=== PATIENT | male | born 1990 | race Caucasian/White ===

== ENCOUNTER 2022-01-29 20:52 | Emergency (ER) | payer BC ==
[2022-01-29 20:57] VITALS: TEMP 97.5
[2022-01-29] MEDS ORDERED: IPRATROPIUM-ALBUTEROL 3 ML NEB INHALATION STA (21:24)
[2022-01-29 22:06] VITALS: BP 132/79; PULSE 74; RESP 18
--- NOTE | 2022-01-29 22:10 | ED ---
URI HPI - General Chief Complaint: Upper Respiratory Infection Stated Complaint: Difficulty Breathing, Throat Swelling Time Seen by Provider: 01/29/22 21:10 Source: patient, family, RN notes reviewed Mode of arrival: ambulatory Limitations: no limitations - History of Present Illness Initial Comments: This is a 32-year-old male who presents to the emergency department with upper respiratory symptoms. States that 2 weeks ago he was in [place], and that is when he began to develop symptoms. He started out with coughing, nasal congestion, and sinus pressure. He went to urgent care 3 days ago and was given a prescription for Augmentin. Since starting the Augmentin, he has had improvement in sinus pressure and congestion, however he has developed a sore throat, and feels like it is becoming harder to breathe because of his throat. His coughing has also gotten worse and he is not sleeping well due to the coughing and throat pain. He has been treating his symptoms with [id number] Mucinex and Sudafed, with only minimal improvement. He does have a history of asthma, and states that it almost feels similar to an asthma attack. He did have a few doses of prednisone at home, and he took 3 pills last week, states he had the most improvement when taking the Prednisone. He is not currently being treated for the asthma. He did have COVID a month and a half ago. Denies any sick contacts. Denies any fevers or chills. MD Complaint: cough, sore throat, rhinorrhea, nasal congestion, sinus pain Onset/Timin -: week(s) Context: recent travel Associated Symptoms: nasal congestion, sore throat, cough - Related Data Home Medications Medication Instructions Recorded Confirmed Amoxicillin/Potassium Clav 1 tab PO BID 01/29/22 01/29/22 [Augmentin 875-125 Tablet] Previous Rx's Medication Instructions Recorded Albuterol Nebulized [Ventolin 2.5 mg INHALATION Q4H 8 Days #150 01/29/22 Nebulized] ml Benzonatate [Tessalon Perles] 100 mg PO TID PRN #20 cap 01/29/22 Doxycycline [Vibramycin] 100 mg PO BID 7 Days #14 capsule 01/29/22 Promethazine HCl/Codeine 5 ml PO Q6H PRN 3 Days #60 ml 01/29/22 [Promethazine-Codeine Syrup] predniSONE 50 mg PO DAILY 5 Days #5 tablet 01/29/22 Allergies Allergy/AdvReac Type Severity Reaction Status Date / Time No Known Allergies Allergy Verified 01/29/22 21:49 Review of Systems ROS Statement: Those systems with pertinent positive or pertinent negative responses have been documented in the HPI. ROS Other: All systems not noted in ROS Statement are negative. Constitutional: Denies: fever, chills ENT: Reports: throat pain, congestion. Denies: ear pain Respiratory: Reports: cough. Denies: dyspnea, wheezes, hemoptysis, stridor Cardiovascular: Denies: chest pain, palpitations Gastrointestinal: Denies: abdominal pain, nausea, vomiting, diarrhea Genitourinary: Denies: urgency, dysuria Skin: Denies: rash, lesions Neurological: Denies: headache, weakness Past Medical History Past Medical History: No Reported History History of Any Multi-Drug Resistant Organisms: None Reported Past Surgical History: Appendectomy Past Psychological History: No Psychological Hx Reported Smoking Status: Never smoker Past Alcohol Use History: Occasional Past Drug Use History: None Reported General Exam Limitations: no limitations General appearance: alert, in no apparent distress Eye exam: Present: normal appearance Pupils: Present: normal accommodation ENT exam: Present: mucous membranes moist, other (Uvula is long and touches the posterior lingua. There is moderate pharyngeal erythema, no tonsillar hypertrophy or exudates.) Respiratory exam: Present: normal lung sounds bilaterally. Absent: respiratory distress, wheezes, rales, rhonchi, stridor Cardiovascular Exam: Present: regular rate, normal rhythm, normal heart sounds. Absent: systolic murmur, diastolic murmur, rubs, gallop, clicks Neurological exam: Present: alert, oriented X3, CN II-XII intact Psychiatric exam: Present: normal affect, normal mood Skin exam: Present: warm, dry, intact, normal color. Absent: rash Course Vital Signs 01/29/22 01/29/22 01/29/22 20:53 21:36 21:45 Temperature 97.5 F L Pulse Rate 67 69 69 Respiratory 20 Rate Blood Pressure 138/83 O2 Sat by Pulse 98 Oximetry 01/29/22 22:05 Temperature Pulse Rate 74 Respiratory 18 Rate Blood Pressure 132/79 O2 Sat by Pulse 98 Oximetry Medical Decision Making - Medical Decision Making This is a 32-year-old male who presents the emergency department for a persistent upper respiratory infection. The patient does have a history of asthma, and because he felt like he had difficulty breathing, we did try a DuoNeb treatment. However, the patient did not have much relief with this. Rapid strep test done given the persistent sore throat, however this was negative. Chest x-ray and x-ray of the soft tissue of the neck was also obtained due to patient's feeling of throat swelling and concern for difficulty breathing. Given that this has been occurring for over 10 days, it is likely that he is experiencing a secondary bacterial infection. There is concern for reaction with the Augmentin, given the patient's sore throat and feeling of throat swelling. Will switch antibiotics to doxycycline, and give patient the first dose here to ensure he tolerates it well. Will also discharge the patient on a 5 day course of 50 mg of prednisone. I also gave the patient a prescription for Tessalon Perles and codeine with Phenergan cough syrup. Instructed him to avoid driving or operating machinery when taking the codeine cough syrup, and advised to strictly use at night. Because the patient has been unable to sleep due to the throat pain and he is experiencing a cough, I provided him with a starter pack for Tylenol No. 3, as the codeine will relieve his pain, act as a cough suppressant, and allow the patient to sleep better tonight. The pharmacies are closed at this point, and he will be unable to acquire his prescriptions until morning. Patient requested an albuterol prescription for his nebulizer in the event his symptoms get worse, which I provided as well. Return precautions reviewed in depth, the patient is instructed to return to the emergency department if symptoms worsen including but not limited to the development of fevers/chills, difficulty breathing, or worsening throat pain. Patient verbalized understanding. This case was discussed in detail with the attending ED physician. Presentation, findings, and treatment plan discussed in detail as well. - Lab Data Lab Results 01/29/22 Range/Units 22:01 Group A Strep Rapid Negative (Negative) - Radiology Data Radiology results: report reviewed, image reviewed Disposition Clinical Impression: Upper respiratory tract infection, Pharyngitis Disposition: HOME SELF-CARE Instructions (If sedation given, give patient instructions): Upper Respiratory Infection (ED), Pharyngitis (ED) Additional Instructions: Return to the emergency department if symptoms worsen, you develop fevers, chills, problems breathing, or your symptoms do not resolve. Take antibiotics as prescribed. Take the cough syrup with codeine only at night, do not drive and operate machinery when taking it. Prescriptions: predniSONE 50 mg PO DAILY 5 Days #5 tablet Promethazine HCl/Codeine [Promethazine-Codeine Syrup] 5 ml PO Q6H PRN 3 Days #60 ml PRN Reason: Cough Benzonatate [Tessalon Perles] 100 mg PO TID PRN #20 cap PRN Reason: Cough Doxycycline [Vibramycin] 100 mg PO BID 7 Days #14 capsule Is patient prescribed a controlled substance at d/c from ED?: Yes When asked, does pt state using other controlled substances?: No If prescribed controlled substance>3 days was MAPS reviewed?: Prescribed <3 Days Referrals: None,Stated [Primary Care Provider] - 1-2 days
[2022-01-29] MEDS ORDERED: DOXYCYCLINE 100 MG CAP PO STA (22:46)
[2022-01-29] MEDS ORDERED: predniSONE 50 MG TAB PO STA (22:47)
--- NOTE | 2022-01-29 22:56 | XR ---
EXAMINATION TYPE: XR chest 2V DATE OF EXAM: 01/29/2022 COMPARISON: NONE HISTORY: Cough TECHNIQUE: 2 views FINDINGS: Heart and mediastinum are normal. Lungs are clear. Diaphragm is normal. Bony thorax appears normal. IMPRESSION: Normal chest.
--- NOTE | 2022-01-29 22:58 | XR ---
EXAMINATION TYPE: XR soft tissue neck DATE OF EXAM: 01/29/2022 COMPARISON: NONE HISTORY: Sore throat TECHNIQUE: 2 views FINDINGS: Epiglottis is normal. Subglottic trachea appears normal. Tonsils and adenoids appear normal . Cervical vertebra appear intact. Prevertebral soft tissues appear normal. IMPRESSION: Negative cervical soft tissue exam.
[2022-01-29] MEDS ORDERED: BENZONATATE 100 MG CAP PO STA (23:02)
[2022-01-29] MEDS ORDERED: Phenol 1.4% Sore Throat Spray Bottle MUCOUS MEM PRN (23:03)
[2022-01-29] MEDS ORDERED: ACET/COD 300 MG/30 MG STARTER PACK 6 TAB BTL PO STA (23:08)
== END 2022-01-30 00:24 | disposition home or self-care (01) ==
LOC: EC 20:52
DX: J06.9 Acute upper respiratory infection, unspecified (principal); J31.2 Chronic pharyngitis
CPT/HCPCS: 94640; 87081; 87430; 70360; 71046; 99283; J7512